=== PATIENT | female | born 1975 | race Caucasian/White ===

== ENCOUNTER 2021-12-30 06:56 | Emergency (ER) | payer OTHER, SELFPAY ==
[2021-12-30] VITALS (16 sets, daily range): BP systolic 142–181; BP diastolic 79–116; PULSE 66–111; RESP 12–24; TEMP 36.4–37.1; O2SAT 93–100; BMI 25.7
--- NOTE | ~2021-12-30 | XR_ITS ---
EXAMINATION: XR CHEST CLINICAL INFORMATION: Fall down flight of stairs. COMPARISON: Studies performed earlier same date TECHNIQUE: Frontal view of the chest was obtained. XR/XR chest 1V FINDINGS/IMPRESSION: Large left pneumothorax without mediastinal shift. Right lung clear. Cardiomegaly and pulmonary vascularity within normal limits. Displaced left clavicular mid diaphyseal fracture. Nondisplaced left posterior third through fifth rib fractures.
--- NOTE | ~2021-12-30 | XR_ITS ---
EXAMINATION: XR CHEST CLINICAL INFORMATION: Follow-up pneumothorax. COMPARISON: Chest 12/30/2021 at 9:59 AM TECHNIQUE: Frontal view of the chest was obtained. FINDINGS: Again visualized is a large left pneumothorax with collapsed left lung slightly increased from early exam. The right lung is expanded and clear. There is mild mediastinal shift to the right. There are multiple rib fractures involving left third, fourth and fifth ribs and displaced mid clavicular fracture as well. The heart size is enlarged. Pulmonary vascularity is normal. XR/XR chest 1V IMPRESSION: Large left pneumothorax with collapsed lung. The pneumothorax is slightly increased in size. There is mild mediastinal shift to the right. There are multiple rib fractures and a left mid clavicular fracture.
--- NOTE | ~2021-12-30 | XR_ITS ---
EXAMINATION: XR shoulder LT min 2V, XR clavicle LT CLINICAL INFORMATION: Reason for Exam fall, shoulder pain, + deformity COMPARISON: None. TECHNIQUE: 2 views of the left shoulder and a single view of the left clavicle FINDINGS: Glenohumeral and acromioclavicular joints unremarkable. Scapula intact. There is a moderately displaced fracture of the mid clavicular diaphysis with apex superior angulation and mild overlap of the fracture fragments. No displaced rib fractures. There may be a healed posterior 4th-5th rib fractures. Large left pneumothorax. No mediastinal shift. XR/XR shoulder LT min 2V IMPRESSION: * Displaced clavicular diaphyseal fracture with bayoneting of the fracture fragments as described. * Large left pneumothorax, without mediastinal shift. This critical result was discussed with Lakisha JOHNSON at 12/30/2021 9:56 AM and it was ascertained that the content and urgency of the report was understood at the time of direct communication.
--- NOTE | ~2021-12-30 | CT_ITS ---
PROCEDURE: CT-GUIDED INSERTION, LEFT PLEURAL TUNNEL CATHETER CLINICAL INFORMATION: Left pneumothorax. COMPARISON: None TECHNIQUE: Following explaining CT-guided fluoroscopy-guided insertion of a left chest catheter procedure, benefits and risk, a written consent was obtained. Patient was placed supine on CT fluoroscopy table and upper chest was imaged. Lead markers were then placed along the left anterior chest and repeat imaging performed. An optimal lead marker was selected and was marked on the skin. The skin site was cleaned and draped in the usual sterile manner. 1% lidocaine was injected at puncture site. Through a small skin incision a 5 Marshallese Yueh catheter was advanced from the skin into the left apical pneumothorax. After repeat CT imaging and observing tip of the needle in the left apical pleural space, stylet was withdrawn and 0.035 J-wire was introduced through the 5 Marshallese sheath into the pleural cavity and sheath withdrawn. An 8.5 Marshallese APD catheter with a stiffener was then advanced over the guidewire into the left pleural cavity. After achieving optimal depth the stylet was loosened and the catheter advanced into the pleural space. The guidewire and the stiffener were removed and catheter connected to pneumatocele vacuum at -20 cm of water wall suction. The catheter was stitched with three 0-9 absorbable sutures along the left anterior chest wall. Sterile dressing applied postprocedure. Patient tolerated procedure extremely well. This CT examination was performed using dose optimization techniques as appropriate, variously including the following: *Automated exposure control *Adjustment of mA and/or kV according to patient size (this includes techniques or standardized protocols for targeted exams where dose is matched to indication/reason for exam; i.e. extremities or head) *Use of iterative reconstruction technique DLP: 218 mGy-cm FINDINGS: On preliminary CT imaging there is a [id number] left apical pneumothorax with collapsed left lower lobe. There is subcutaneous emphysema in the left anterior chest wall. The right lung is expanded and clear. The central trachea and the bronchi are widely patent. Heart size and the great vessels are normal caliber. No mediastinal mass or lymphadenopathy seen. Limited images through the upper chest reveals displaced left midclavicular fracture. There is a nondisplaced left lateral 4th lateral rib fracture. CT/CT chest tube placement IMPRESSION: There is [id number] left hemithorax with left lower lobe collapse. In addition there is subcutaneous left anterior chest wall emphysema. There is a nondisplaced left lateral 4th rib and midclavicular displaced fractures.
--- NOTE | ~2021-12-30 | XR_ITS ---
EXAMINATION: PORTABLE CHEST 1 VIEW CLINICAL INFORMATION: evaluate pneumothorax . COMPARISON: 12/30/2021 earlier today. TECHNIQUE: Portable frontal view of the chest was obtained. FINDINGS: Interval placement of a left-sided pigtail chest tube with significant reexpansion of the left lung and decrease left-sided pneumothorax compared to earlier today. Patchy bilateral airspace disease may represent some scattered atelectasis. No significant effusion or edema. Cardiac and mediastinal silhouettes within normal limits for size. Mid left clavicle fracture noted. Left-sided rib fractures again noted. XR/XR chest 1V IMPRESSION: Significantly improved left-sided pneumothorax with left chest tube placement.
--- NOTE | ~2021-12-30 | CT_ITS ---
EXAMINATION: CT HEAD WITHOUT CONTRAST CT CERVICAL SPINE WITHOUT CONTRAST CLINICAL INFORMATION: Unknown loss of consciousness. COMPARISON: None. TECHNIQUE: Multidetector CT imaging of the head and cervical spine was performed without the use of intravenous contrast. Multiplanar reformats are reviewed. This CT examination was performed using dose optimization techniques as appropriate, variously including the following: *Automated exposure control *Adjustment of mA and/or kV according to patient size (this includes techniques or standardized protocols for targeted exams where dose is matched to indication/reason for exam; i.e. extremities or head) *Use of iterative reconstruction technique DLP: 964 mGy-cm. FINDINGS: There is no evidence of acute intracranial hemorrhage or territorial infarction. No abnormal mass effect or midline shift is seen. Moy to white matter differentiation is well preserved. No extra-axial fluid collections are identified. The ventricles are normal in size. There is no abnormal attenuation within the brain parenchyma. The osseous structures and soft tissues are normal. The mastoid air cells and visualized portions of the paranasal sinuses are well-aerated. Atlantooccipital alignment is maintained. The vertebral bodies and posterior elements align normally. No acute fracture or subluxation. Vertebral body heights are maintained. Small endplate osteophytes present C4-5, C5-6 and C6-7. The paraspinal soft tissues are unremarkable. Again seen is a large left pneumothorax. Nondisplaced left posteromedial third rib fracture. Minimally displaced left posterior fourth rib fracture. Nondisplaced left posterior fifth rib fracture. Left clavicular diaphyseal fracture redemonstrated. CT/CT cervical spine wo con IMPRESSION: * No acute intracranial pathology. * No cervical spine fracture or malalignment. * Displaced left clavicular fracture redemonstrated. * Nondisplaced left posterior third and fifth rib fractures and minimally displaced left posterior fourth rib fracture. * Large left pneumothorax, previously discussed with ALEX Ibanez
--- NOTE | ~2021-12-30 | XR_ITS ---
EXAMINATION: XR shoulder LT min 2V, XR clavicle LT CLINICAL INFORMATION: Reason for Exam fall, shoulder pain, + deformity COMPARISON: None. TECHNIQUE: 2 views of the left shoulder and a single view of the left clavicle FINDINGS: Glenohumeral and acromioclavicular joints unremarkable. Scapula intact. There is a moderately displaced fracture of the mid clavicular diaphysis with apex superior angulation and mild overlap of the fracture fragments. No displaced rib fractures. There may be a healed posterior 4th-5th rib fractures. Large left pneumothorax. No mediastinal shift. XR/XR clavicle LT IMPRESSION: * Displaced clavicular diaphyseal fracture with bayoneting of the fracture fragments as described. * Large left pneumothorax, without mediastinal shift. This critical result was discussed with Lakisha JOHNSON at 12/30/2021 9:56 AM and it was ascertained that the content and urgency of the report was understood at the time of direct communication.
--- NOTE | ~2021-12-30 | CT_ITS ---
EXAMINATION: CT CHEST, ABDOMEN AND PELVIS WITH CONTRAST CLINICAL INFORMATION: Reason for Exam fall down flight of stairs COMPARISON: No pertinent prior studies are available for comparison. TECHNIQUE: Multidetector volumetric imaging was performed from the thoracic inlet through the pubic symphysis following the uneventful administration of: Oral contrast: None Intravenous contrast: 85 mL Omnipaque 350 Sagittal and coronal reformatted images were obtained on the technologist workstation. This CT examination was performed using dose optimization techniques as appropriate, variously including the following: *Automated exposure control *Adjustment of mA and/or kV according to patient size (this includes techniques or standardized protocols for targeted exams where dose is matched to indication/reason for exam; i.e. extremities or head) *Use of iterative reconstruction technique FINDINGS: CHEST: LUNG: Bilateral patchy lower lobe consolidation left greater than right with partial atelectasis/collapse of the left upper lobe. Favor the findings are secondary to atelectasis although a component of aspiration may be possible. The appearance is not typical in distribution for contusion. MEDIASTINUM: There is some shift of the heart and mediastinum to the left. No hilar lymphadenopathy. Motion artifact limits evaluation of the aortic outflow tract and ascending aorta. No adjacent hematoma seen to suggest traumatic aortic injury. There are scattered foci of gas in the left epicardial fat presumably related to the left-sided pneumothorax. PLEURA: No right pneumothorax. Moderate-sized left pneumothorax is is minimally if at all improved compared to the earlier CT scans. Left anterior approach pigtail drainage catheter is present with subcutaneous emphysema in the left chest. CHEST WALL/AXILLA: Mildly displaced left lateral fourth rib fracture. ABDOMEN/PELVIS: LIVER, GALLBLADDER, AND BILIARY TREE: The liver is normal in size, shape, and attenuation. No focal hepatic lesion or biliary ductal dilatation is present. The gallbladder is unremarkable with no evidence of radiopaque gallstones, gallbladder wall thickening, or obvious pericholecystic inflammatory changes. PANCREAS: Normal; no mass or surrounding fluid. SPLEEN: Normal size. No focal lesion. ADRENAL GLANDS: Normal; no mass. KIDNEYS AND URETERS: The kidneys are normal in size, shape, and attenuation. No hydronephrosis, hydroureter, or calculi. GASTROINTESTINAL TRACT: Stomach and small bowel are nondilated. Scattered colonic diverticulosis. No evidence of colitis or diverticulitis. Normal appendix. ABDOMINAL WALL: Small fat-containing umbilical hernia. LYMPHOVASCULAR STRUCTURES: No lymphadenopathy. The aorta is unremarkable. BLADDER: No focal mass or wall thickening seen. No bladder calculi. PELVIC VISCERA: Normal CT appearance of the uterus. There is an IUD in place. 3.7 cm unilocular simple appearing cyst in the left ovary, likely benign physiologic finding in a reproductive age female patient for which no imaging follow-up is recommended. No right adnexal mass. OSSEOUS STRUCTURES: There is degenerative disc disease at L5-S1 and to a lesser degree at L4-5. CT/CT abdomen pelvis w con IMPRESSION: Moderate sized left pneumothorax. A few foci of gas in the left epicardial fat. Left chest wall subcutaneous emphysema. An anterior approach left pigtail pleural catheter is in place. However, the pneumothorax does not appear to be significantly decreased in size from earlier studies. Recommend correlation with functioning of the 2. Mildly displaced left-sided rib fracture. Bilateral airspace opacities, left greater than right, favor atelectasis or aspiration. An element of contusion may be possible but the appearance favors atelectasis or aspiration. No evidence of solid visceral organ injury in the abdomen or pelvis. The findings and recommendations were discussed with Liam Monroy MD by telephone at 12/30/2021 4:05 PM and it was ascertained that the content and urgency of the report was understood at the time of direct communication.
[2021-12-30] MEDS: Acetaminophen 325 MG TABLET 975 MG PO (09:44)
[2021-12-30] MEDS: Ibuprofen 600 MG TABLET PO (09:44)
[2021-12-30] MEDS: oxyCODONE HCl Immed Release 5 MG TABLET PO (09:44)
--- NOTE | 2021-12-30 10:27 | ED_ITS ---
HPI - Fall General Chief Complaint: Extremity Injury, Upper Stated Complaint: Fall/Shoulder pain Time Seen by Provider: 12/30/21 09:09 Source: patient and family Mode of arrival: ambulatory Limitations: no limitations History of Present Illness HPI Narrative: I did not see patient initially seen was in [facility] notified by PA that patient had PTX I requested she be brought to the main ED and I took over care. complaint: fall Onset (ago): day(s) (1030pm last night) Fall from: standing Fall witnessed: no Place fall occurred: home Loss of consciousness: unsure Prolonged down time: no Context: tripped/slipped (due to flip flops) Location of injury: other (L clavicle, hurts to breathe on left side) Location of injury - extremities: left: shoulder Severity: severe Quality: sharp Associated symptoms (after fall): shortness of breath Related Data Allergies Allergy/AdvReac Type Severity Reaction Status Date / Time No Known Allergies Allergy Verified 12/30/21 09:09 Review of Systems Review of Systems: Constitutional : No Fever, No Chills ENT/Mouth : No Ear Pain, No Hoarseness, No sore throat Eyes: No Eye Pain, No Swelling, No Redness, No Foreign Body Cardiovascular : No Chest Pain - pos rib pain, No SOB Respiratory : No Cough, pos Dyspnea Gastrointestinal : No Nausea, No Vomiting, No Diarrhea, No abdominal Pain Genitourinary : No Dysuria, No Hematuria Musculoskeletal : positive joint pain, No Myalgias, pos Joint Swelling Skin : No Skin lacerations, No rash Neuro : No Weakness, No Numbness, No Loss of Consciousness, No Dizziness, No Headache Psych : No Anxiety/Panic, No Depression Heme/Lymph: no easy bruising, no Lymphadenopathy Endocrine : No Polyuria, No Polydipsia All other systems reviewed and are negative PMFSH Past Medical History Attestation statement: The following information was validated with the patient. Medical History Graves disease Social History Social History Patient Tobacco Use Status: Never used Tobacco Use of substances other than those prescribed or required for medical reasons: No Advance Directives: No Advance Directives Information Provided: No Physical Exam Vital Signs: Vital Signs: Last Vital Signs Temp 98.7 F 12/30/21 09:13 Pulse 94 12/30/21 12:22 Resp 20 12/30/21 12:22 BP 172/112 H 12/30/21 12:22 Pulse Ox 99 12/30/21 12:22 BMI result Body Mass Index 25.7 Appearance: Alert. Oriented X3. No acute distress. Eyes: Pupils equal, round and reactive to light. ENT: Pharynx normal. Neck: Normal inspection. Neck supple. CVS: Normal heart rate and rhythm. Pulses normal. Chest: tenting L clavicle area - obvious clavicle injury - distal NV in LUE Respiratory: No respiratory distress. Splinting on L side diminished breath sounds Abdomen: Soft and nontender. Skin: Skin warm and dry. Normal skin color. Normal skin turgor. Extremities: No lower extremity edema. No calf ttp Neuro: Oriented X 3. No motor deficit. No sensory deficit. Course Course Course Narrative: due to large amount of breast tissue unable to pass pigtail after multiple attempts and replacement of guidewire, did attempt one pass anterior but I did not feel comfortable - Dr. Giles assisted will have IR place chest tube. Patient and aware. signed out to Dr. Azar pending further workup Procedures Chest Tube Chest Tube 1: Chest Tube Location: left and mid axillary line Size of Tube (cm): 14 Chest Tube Prep: Yes betadine prep and sterile drapes applied Local Anesthetic: lidocaine 1% Amount of anesthesia used (mL): 10 Incision Made With: #11 blade Post Procedure: sterile dressing applied (occlusive dressing applied over area of chest tube site attempt) Tube Drainage: none Post Procedure CXR?: Yes Patient Tolerated Procedure: Yes Complications: other (unable to advance the dilator due to large amount of breast tissue and tissue in area could not get over kinked wire even with attempts to graduate dilation. patient tolerated well. one attempt anteriorly 2nd mid axillary line - stopped and deferred to IR. ) MDM - Fall MDM Narrative Medical decision making narrative: 46 yo female no DOAC comes in after mechanical fall down half flight of stairs, broke a gate at the bottom unsure of LOC - brought over from fast track due to left PTX - will need chambers trauma CT scan. IV pain medications, chest tube. Admission here if no other injuries noted. Dispo per results and findings Lab Data Result diagrams: 12/30/21 10:22 12/30/21 10:22 Labs: Lab Results 12/30/21 12/30/21 12/30/21 Range/Units 10:22 10:22 10:22 WBC 10.6 (4.8-10.8) X10*3/uL RBC 4.40 (4.20-5.50) X10*6/uL Hgb 13.9 (12.0-16.0) g/dl Hct 41.2 (37.0-47.0) % MCV 93.6 (80.0-98.0) fL MCH 31.6 (27.0-33.0) pg MCHC 33.7 (31.0-35.0) g/dl RDW 13.2 (11.0-16.0) % Plt Count 220 (160-400) X10*3/uL MPV 8.8 L (9.4-12.3) fL Immature Gran % (Auto) 0.4 (0.0-0.4) % Neut % (Auto) 82.7 H (45-73) % Lymph % (Auto) 11.0 L (20-40) % Henderson % (Auto) 5.2 (2-11) % Eos % (Auto) 0.3 (0-4) % Baso % (Auto) 0.4 (0-2) % Lymph # (Auto) 1.2 (1.2-4.9) X10*3/uL Henderson # (Auto) 0.6 (0.1-1.2) X10*3/uL Eos # (Auto) 0.0 (0.0-0.4) X10*3/uL Baso # (Auto) 0.0 (0.0-0.2) X10*3/uL Abs Immat Gran (auto) 0.04 H (0.00-0.03) X10*3/uL Absolute Neuts (auto) 8.8 H (2.0-8.3) x10*3/uL Absolute Nucleated RBC 0.000 (0.0-0.012) X10*3/uL Nucleated RBC % (auto) 0.0 (0.0-0.2) /100WBC PT 10.8 (9.9-13.0) SEC INR 1.0 (0.9-1.1) APTT 30.4 (24.1-38.0) SEC Sodium 140 (135-145) mmol/L Potassium 4.0 (3.3-5.1) mmol/L Chloride 107 (96-108) mmol/L Carbon Dioxide 24 (22-29) mmol/L Anion Gap 13 (12-20) BUN 9 (9-16) mg/dL Creatinine 0.81 (0.5-1.4) mg/dL Estim Creat Clear Calc 84.0 Estimated GFR > 60 Random Glucose 112 (60-115) mg/dL Calcium 9.7 (8.4-10.2) mg/dL Total Bilirubin 0.3 (0.0-1.0) mg/dL Direct Bilirubin 0.2 (0.0-0.5) mg/dL AST 21 (5-31) U/L ALT 14 (0-31) U/L Alkaline Phosphatase 75 (39-117) U/L Total Protein 7.2 (6.5-8.0) g/dL Albumin 4.3 (3.5-5.0) g/dL Lipase 28 (8-78) U/L Discharge Plan Discharge Clinical Impression: Clavicle fracture, Fracture of rib, Pneumothorax, left
[2021-12-30 10:28] LABS: Basophils Percent Auto 0.4 % (0-2); Eosinophils Percent Auto 0.3 % (0-4); Hematocrit 41.2 % (37.0-47.0); Hemoglobin 13.9 g/dl (12.0-16.0); Imm Gran Abs Auto 0.04 X10*3/uL (0.00-0.03); Imm Gran Pct Auto 0.4 % (0.0-0.4); Lymphocytes Absolute Auto 1.2 X10*3/uL (1.2-4.9); MANUAL DIFF FLAG NO; Mean Corpuscular HGB Conc 33.7 g/dl (31.0-35.0); Mean Corpuscular Hemoglobin 31.6 pg (27.0-33.0); Mean Corpuscular Volume 93.6 fL (80.0-98.0); Mean Platelet Volume 8.8 fL (9.4-12.3); Monocytes Absolute Auto 0.6 X10*3/uL (0.1-1.2); Monocytes Percent Auto 5.2 % (2-11); Neutrophils Absolute Auto 8.8 x10*3/uL (2.0-8.3); Neutrophils Percent Auto 82.7 % (45-73); Platelet Count 220 X10*3/uL (160-400); Red Cell Distribution Width 13.2 % (11.0-16.0); White Blood Count 10.6 X10*3/uL (4.8-10.8)
--- NOTE | 2021-12-30 10:28 | PC.NURSE ---
pt alert and oriented, skin pwd, respirations even and unlabored, pt did report feeling sob before the non-rebreather, now sating at 100 on the non-rebreather, sinus tach on the monitor, pt states having pain in the shoulder/clavicle/shoulder blade pain at 10/10 after the medications.
[2021-12-30 10:36] LABS: Prothrombin Time 10.8 SEC (9.9-13.0)
[2021-12-30] MEDS: ondansetron HCL 4 MG/2 ML VIAL IVPUSH (10:38)
[2021-12-30] MEDS: LORazepam 2 MG/ML VIAL 0.5 MG IVPUSH (10:38)
[2021-12-30] MEDS: fentaNYL citrate/PF 100 MCG/2 ML VIAL 50 MCG IVPUSH ×3 (10:38→12:43)
[2021-12-30 10:39] LABS: Partial Thromboplastin Time 30.4 SEC (24.1-38.0)
[2021-12-30 10:44] LABS: Alanine Aminotransferase 14 U/L (0-31); Albumin Level 4.3 g/dL (3.5-5.0); Alkaline Phosphatase 75 U/L (39-117); Anion Gap 13 (12-20); Aspartate Amino Transferase 21 U/L (5-31); Bilirubin Direct 0.2 mg/dL (0.0-0.5); Bilirubin Total 0.3 mg/dL (0.0-1.0); Blood Urea Nitrogen 9 mg/dL (9-16); Calcium 9.7 mg/dL (8.4-10.2); Carbon Dioxide 24 mmol/L (22-29); Chloride 107 mmol/L (96-108); Estimated Glomerular Filt Rate > 60; Glucose Random 112 mg/dL (60-115); Lipase 28 U/L (8-78); Sodium 140 mmol/L (135-145); Total Protein 7.2 g/dL (6.5-8.0)
--- NOTE | 2021-12-30 10:46 | PC.NURSE ---
dr rodrigez and dr mcmullen at bedside getting set up for the chest tube insertion on the left side
[2021-12-30] MEDS: Lidocaine HCl 1 % MPF 5 ML VIAL SUBCUT ×2 (10:50→11:20)
[2021-12-30] MEDS: fentaNYL citrate/PF 100 MCG/2 ML VIAL 75 MCG IVPUSH (11:16)
--- NOTE | 2021-12-30 12:30 | PC.NURSE ---
multiple attempts by dr rodrigez and dr mendoza to insert the pig tail chest tube but unfortunately unsuccessful pt tolerated the procedure very well, vs stable plan to have IR insert the chest tube
[2021-12-30] MEDS: 0.9 % Sodium Chloride 1,000 ML 999 ML IV (12:35)
--- NOTE | 2021-12-30 13:15 | PC.NURSE ---
off to ct with dr jones, to atempt to insert the chest tube again pt on the zol vs stable at this time
[2021-12-30 13:21] LABS: HCG Quantitative < 2 mIU/mL
--- NOTE | 2021-12-30 13:25 | PC.NURSE ---
chest tube-pig tail in place by dr jones, pt tolerated the procedure well
--- NOTE | 2021-12-30 14:00 | PC.NURSE ---
back to the room, chest tube is on the left upper chest area, connected to the suction at -20, regular suction at 80, pt tolerating well, pt taken off the non-rebreather and put on 6l nasal nacual and sating at 99%, normal sinus on the monitor
--- NOTE | 2021-12-30 14:06 | PHA.MEDREC ---
Pharmacy Consult ? Medication Reconciliation Pharmacy has completed the medication reconciliation. Spoke with patient to confirm medications. Juana Cramer, ReinierD
[2021-12-30] MEDS: Morphine Sulfate 4 MG/ML CARTRIDGE IVPUSH ×3 (14:43→20:20)
[2021-12-30] MEDS: iohexoL 350 MG/ML 100 ML INFUS..BTL IV (15:29)
[2021-12-30 15:38] LABS: COVID-19 Test Negative (Negative)
--- NOTE | 2021-12-30 16:53 | PC.NURSE ---
@ [phone] CALL PLACED TO [facility] PT TX LINE @ DR MARTIN request
[2021-12-30] MEDS: Piperacillin Sodium/Tazobactam 4.5 GM in 0.9 % Sodium Chloride 100 ML IV (17:30)
--- NOTE | 2021-12-30 17:32 | PC.NURSE ---
CALL RECEIVED BY MARLEN FROM [facility] PT TX LINE ASKING TO SPEAK WITH DR MARIO MARTIN TAKES OVER CALL RIGHT AWAY
--- NOTE | 2021-12-30 18:07 | PC.NURSE ---
@[phone] CALL PLACED TO [facility] PT TX LINE @ DR MARTIN REQUEST JESUS MANUEL ANSWERS, DR MARTIN TAKES OVER CALL RIGHT AWAY
--- NOTE | 2021-12-30 18:59 | PC.NURSE ---
CALL RECEIVED FROM [facility] PT TX LINE ASKING TO SPEAK WITH DR MARIO MARTIN TAKES OVER CALL RIGHT AWAY DR MARTIN STATES PT ACCEPTED ER TO ER A TRAUMA TRANSFER BY DR VOSS
--- NOTE | 2021-12-30 19:20 | PC.NURSE ---
report received from JOSHUA Lange. pt is alert and oriented. resting in bed. breathing equally unlabored. pt on continuos cardiac monitoring.
[2021-12-30] MEDS: HYDROmorphone HCl 0.5 MG/0.5 ML SYRINGE 0.25 MG IVPUSH (22:31)
== END 2021-12-31 00:26 | disposition short-term general hospital (02) ==
PROVIDERS: Emergency Medicine; Emergency Provider Emergency Medicine Emergency Medical Services; PCP Nurse Practitioner
DX: S42.002A Fracture of unspecified part of left clavicle, initial encounter for closed fracture (principal); S22.42XA Multiple fractures of ribs, left side, initial encounter for closed fracture; S27.0XXA Traumatic pneumothorax, initial encounter; M54.6 Pain in thoracic spine; R06.02 Shortness of breath; M25.512 Pain in left shoulder; M54.2 Cervicalgia; G44.309 Post-traumatic headache, unspecified, not intractable; M54.50 Low back pain, unspecified; R10.9 Unspecified abdominal pain; W10.9XXA Fall (on) (from) unspecified stairs and steps, initial encounter; Y93.9 Activity, unspecified; Y92.009 Unspecified place in unspecified non-institutional (private) residence as the place of occurrence of the external cause; Y99.9 Unspecified external cause status; Z20.822 Contact with and (suspected) exposure to COVID-19; Z79.899 Other long term (current) drug therapy
CPT/HCPCS: 32551; 32556; 36415; 70450; 71045; 71260; 72125; 73000; 73030; 74177; 80048; 80076; 83690; 84702; 85025; 85610; 85730; 87040; 87635; 96361; 96365; 96375; 96376; 99285; C1729; J1170; J2060; J2270; J2405; J2543; J3010; Q9967